=== PATIENT | male | born 1995 | race Two or more races ===

== ENCOUNTER 2020-09-28 10:31 | Emergency (ER) | payer MEDICAID ==
[~2020-09-28] VITALS: Ht 182.9 cm; Wt 82.0 kg
[2020-09-28] MEDS: SODIUM CHLORIDE 0.9% 1,000 ML IV ONE (11:25)
[2020-09-28] MEDS: KETOROLAC 15MG/ML VIAL IV ONE (11:25)
[2020-09-28 11:44] LABS: CHLORIDE 100 mEq/L (98-107)
[2020-09-28 11:45] LABS: HEMATOCRIT. 44.3 % (42.0-52.0); HEMOGLOBIN. 15.3 g/dL (14.0-18.0); MEAN CORPUSCULAR HEMOGLOBIN 29.2 pg (28.0-32.0); MEAN CORPUSCULAR VOLUME 84.4 fL (80.0-94.0); MEAN PLATELET VOLUME 10.4 fl (7.4-10.4); PLATELET 126 x1000/uL (130-400); RED BLOOD CELL COUNT 5.25 mill/uL (4.7-6.1); RED CELL DISTRIBUTION WIDTH 12.7 % (11.6-14.6)
[2020-09-28 12:09] LABS: PLATELET ESTIMATE SLIGHTLY DECREASED
[2020-09-28] MEDS: ACETAMINOPHEN 325MG TABLET PO ONE (12:43)
[2020-09-28] MEDS ORDERED: TOPUD PO (13:56)
[2020-09-28] MEDS ORDERED: IBUP-2029 MT (13:56)
[2020-09-28 14:15] VITALS: BP 109/64
== END 2020-09-28 14:18 | disposition home or self-care (01) ==
LOC: ER 10:31
DX: U07.1 COVID-19 (principal); B34.9 Viral infection, unspecified; M79.10 Myalgia, unspecified site
CPT/HCPCS: 36415; 71045; 80048; 85025; 96361; 96374; 99285; C9803; J1885; J7030; U0003; U0005

== ENCOUNTER 2020-10-01 08:20 | Emergency (ER) | payer MEDICAID ==
[~2020-10-01] VITALS: Ht 167.6 cm; Wt 80.0 kg
[~2020-10-01 08:20] MED LIST: IBUP-2029 MT; TOPUD PO
[2020-10-01] MEDS ORDERED: KETOROLAC 30MG/ML VIAL IV STA (09:49)
[2020-10-01] MEDS ORDERED: SODIUM CHLORIDE 0.9% 1,000 ML IV ONE (10:00)
[2020-10-01 10:13] LABS: BASOPHILS % 0.5 % (0.0-2.0); HEMOGLOBIN. 14.5 g/dL (14.0-18.0); LYMPHOCYTES % 19.7 % (20.0-50.0); MEAN CORPUSCULAR VOLUME 84.2 fL (80.0-94.0); MEAN PLATELET VOLUME 10.3 fl (7.4-10.4); MONOCYTES % 8.6 % (2.0-8.0); NEUTROPHILS % 71.2 % (40.0-76.0); PLATELET 76 x1000/uL (130-400); RED BLOOD CELL COUNT 4.99 mill/uL (4.7-6.1); RED CELL DISTRIBUTION WIDTH 12.5 % (11.6-14.6)
[2020-10-01 10:18] LABS: CHLORIDE 102 mEq/L (98-107)
[2020-10-01 10:22] LABS: INR 1.1; PROTHROMBIN TIME 11.5 sec (9.6-11.0)
[2020-10-01] MEDS ORDERED: ALBUTEROL (0.083%) 2.5MG/3ML NEB HHN STA (10:25)
[2020-10-01] MEDS ORDERED: IPRATROPIUM BROMIDE (0.02%) 0.5MG/2.5ML NEB HHN STA (10:25)
[2020-10-01] MEDS ORDERED: DEXAMETHASONE 10 MG/ML VIAL IV ONE (10:30)
[2020-10-01] MEDS ORDERED: ONDANSETRON HCL 4MG/2ML INJ IV ONE (10:30)
[2020-10-01 10:42] LABS: *AMPHETAMINES SCREEN URINE NEGATIVE (NEGATIVE); *BARBITURATES SCREEN URINE NEGATIVE (NEGATIVE); *BENZODIAZEPINES SCREEN URINE NEGATIVE (NEGATIVE); *COCAINE SCREEN URINE NEGATIVE (NEGATIVE)
[2020-10-01 10:43] LABS: CANNABINOID URINE SCREEN NEGATIVE (NEGATIVE); METHADONE URINE SCREEN NEGATIVE (NEGATIVE); OPIATES URINE SCREEN NEGATIVE (NEGATIVE); PHENCYCLIDINE URINE SCREEN NEGATIVE (NEGATIVE)
[2020-10-01] MEDS ORDERED: ACETAMINOPHEN 325MG TABLET PO ONE (10:45)
[2020-10-01] MEDS ORDERED: ALBU6.7H9 INH (11:28)
[2020-10-01] MEDS ORDERED: IBUP-2030 MT (11:28)
[2020-10-01] MEDS ORDERED: ONDA4TAB5 MT (11:28)
[2020-10-01 11:30] VITALS: BP 110/68
== END 2020-10-01 11:40 | disposition home or self-care (01) ==
LOC: ER 08:20
DX: U07.1 COVID-19 (principal); M79.10 Myalgia, unspecified site; J20.9 Acute bronchitis, unspecified; R11.2 Nausea with vomiting, unspecified; R50.9 Fever, unspecified; E86.0 Dehydration; Z98.890 Other specified postprocedural states; Z79.899 Other long term (current) drug therapy
CPT/HCPCS: 36415; 71045; 80053; 80305; 85025; 85610; 94640; 96361; 96374; 96375; 99284; C9803; J1100; J1885; J2405; J7030; U0003; U0005; Z7610